=== PATIENT | female | born 1960 | race Caucasian/White ===

== ENCOUNTER 2017-07-10 10:20 | Emergency (ER) | payer OTHER ==
[2017-07-10] MEDS ORDERED: DIPH,PERTUSS(ACELL),TET VAC/PF 0.5 ML DISP.SYRIN IM ONE (10:55)
[2017-07-10] MEDS ORDERED: KETOROLAC TROMETHAMINE 60 MG/2 ML VIAL IM ONE (11:22)
[2017-07-10] MEDS ORDERED: KETOROLAC TROMETHAMINE 60 MG/2 ML VIAL ONE (11:23)
[2017-07-10 11:49] VITALS: BP 128/72
--- NOTE | 2017-07-10 12:28 | ED Physician Documentation ---
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 Severity: moderate Context: fall, twist (Right foot) Associated Symptoms:: unable to bear weight (Right foot) Modifying Factors:: pain on movement (Right foot) - ROS CONST: no problems CVS/RESP: none GI/: denies: problems urinating, nausea, vomiting MS/SKIN/LYMPH: none NEURO: denies: headache - PAST HX Past History: none Allergies/Adverse Reactions: Allergies Allergy/AdvReac Type Severity Reaction Status Date / Time No Known Allergies Allergy Verified 07/10/17 10:38 Home Medications: Ambulatory Orders Medication Instructions Recorded NK [NK] 07/10/17 - SOCIAL HX Smoking History: non-smoker - FAMILY HX Family History: denies: none - VITAL SIGNS Vital Signs: Vital Signs Temp Pulse Resp BP Pulse Ox 98.2 F 79 18 128/72 98 07/10/17 11:48 07/10/17 11:48 07/10/17 11:48 07/10/17 11:48 07/10/17 11:48 - REVIEWED ASSESSMENTS Nursing Assessment Reviewed: Yes Vitals Reviewed: Yes Progress - Progress Progress: Reviewed xray results with patient; reviewed discharge instructions. Patient c/o worse pain with boot, medicated with toradol IM. Reviewed discharge instructions. Recommended follow up with ortho, phone numbers provided. Discharged with report and CD. ED Results Lab/Radiology - Radiology Radiology Impressions: Examination: Plain film foot History: Injury Findings: 3 views of the foot demonstrates a lucency traversing the base of the 5th metatarsal. Remaining cortical margins are without disruption. Articular degenerative changes. Inferior calcaneal spur. No soft tissue swelling. Impression: Fracture base 5th metatarsal. Degenerative changes and calcaneal spur. Electronically signed on Jul 10, 2017 11:04:05 AM CDT by: Neftaly Santos - Orders Orders: ED Orders Category Date Time Status Walking Boot 1T Care 07/10/17 11:35 Active FOOT 3 VIEWS OR MORE [RAD] Stat Exams 07/10/17 10:38 Ordered Diph,Pertuss(Acell),Tet Vac/Pf [Adacel] Med 07/10/17 10:55 Discontinued 0.5 ml IM .ONCE ONE Ketorolac Tromethamine [Toradol] Med 07/10/17 11:23 Discontinued 60 mg .ROUTE .STK-MED ONE Ketorolac Tromethamine [Toradol] Med 07/10/17 11:22 Discontinued 60 mg IM NOW ONE Lower Extremities Injury Phy - Physical Exam General Appearance: mild distress Hips: bilateral hip: non-tender, normal inspection, normal range of motion, no evidence of injury Legs: bilateral: non-tender, normal inspection, normal range of motion, no evidence of injury Knees: bilateral: non-tender, normal inspection, normal range of motion, no evidence of injury Ankle: bilateral: non-tender, normal inspection, normal range of motion, no evidence of injury Foot: right foot: deformity (Right 5th metatarsal base), limited range of motion , pain (Right 5th metatarsal base), soft tissue tenderness, left foot: non- tender, normal inspection, normal range of motion, no evidence of injury Gait: unable to bear weight Neuro/Vascular/Tendon: no vascular compromise, motor nml, sensation nml, ROM nml Head/ENT: nml inspection, pharynx nml Neck/Back: nml inspection, non-tender Resp/CVS: chest non-tender, reg. rate & rhythm Abdomen: non-tender Discharge Clincal Impression: Metatarsal bone fracture Qualifiers: Encounter type: initial encounter Metatarsal bone: fifth Fracture type: closed Fracture alignment: nondisplaced Laterality: right Qualified Code(s): S92.354A - Nondisplaced fracture of fifth metatarsal bone, right foot, initial encounter for closed fracture Referrals: Primary Doctor,No [Primary Care Provider] - 2 Days Condition: Stable Disposition: 01 HOME, SELF-CARE Decision to Admit: NO Decision Time: 11:40
--- NOTE | 2017-07-10 15:24 | Diagnostic Imaging Report ---
YAQUELIN VELASCO (LUCIEN) - ER [facility] [id number] [id number] Report Submission Date: Jul 10, 2017 11:04:05 AM CDT Patient Study Name: SOTERO HICKS Date: Jul 10, 2017 10:40:34 AM CDT Modality Type: CR Gender: F Description: LOWER EXTREMITY : 64 Institution: [facility] Physician: YAQUELIN VELASCO (LUCIEN) - ER Examination: Plain film foot History: Injury Findings: 3 views of the foot demonstrates a lucency traversing the base of the 5th metatarsal. Remaining cortical margins are without disruption. Articular degenerative changes. Inferior calcaneal spur. No soft tissue swelling. Impression: Fracture base 5th metatarsal. Degenerative changes and calcaneal spur. Electronically signed on Jul 10, 2017 11:04:05 AM CDT by: Neftaly ABDI
== END 2017-07-10 11:48 | disposition home or self-care (01) ==
LOC: ED 10:20
DX: S92.354A Nondisplaced fracture of fifth metatarsal bone, right foot, initial encounter for closed fracture (principal); X58.XXXA Exposure to other specified factors, initial encounter; Y93.9 Activity, unspecified; Y99.9 Unspecified external cause status
CPT/HCPCS: 73630; 90715; J1885; L4360; 90471; 96372; 99283